=== PATIENT | male | born 1975 | race Caucasian/White ===

== ENCOUNTER 2016-08-09 14:32 | Inpatient (IN) | payer MEDICARE, MEDICAID ==
[~2016-08-09] VITALS: Ht 175.3 cm; Wt 101.5 kg
[2016-08-09] MEDS ORDERED: HALD5INJ2 PO (14:53)
[2016-08-09] MEDS ORDERED: SERO1TAB PO (14:53)
[2016-08-09] MEDS ORDERED: LITH300C PO (14:53)
[2016-08-09] MEDS ORDERED: TRAZ50TA4 PO (16:32)
[2016-08-09] MEDS ORDERED: CRAN400T3 PO (16:32)
[2016-08-09] MEDS ORDERED: ARTI99.0 OU (16:32)
[2016-08-09] MEDS ORDERED: HALO1TAB29 PO (16:32)
[2016-08-09] MEDS ORDERED: VITMTA PO (16:32)
[2016-08-09] MEDS ORDERED: HALO50AM IM (16:32)
[2016-08-09] MEDS ORDERED: HYDR-4274 PO (16:32)
[2016-08-09 20:11] VITALS: BP 120/86
[2016-08-09] MEDS ORDERED: QUEtiapine FUMARATE 100 MG TAB PO SCH (21:00)
[2016-08-09] MEDS ORDERED: traZODone 50 MG TAB PO PRN (21:15)
[2016-08-09] MEDS ORDERED: MOM 30ML SUSPENSION UDC PO PRN (21:15)
[2016-08-09] MEDS ORDERED: MAALOX 30 ML SUSP *UDC PO PRN (21:15)
[2016-08-09] MEDS: LITHIUM CARBONATE 300 MG CAP PO SCH (21:36)
[2016-08-09] MEDS: HALOPERIDOL 10 MG TAB PO SCH (21:36)
[2016-08-09] MEDS: NICOTINE 21MG/24HR 1 EA TRANSDERMAL TD SCH (21:38)
[2016-08-10] MEDS: hydrOXYzine 50 MG TAB PO PRN ×2 (00:13→10:24)
[2016-08-10 06:46] VITALS: BP 134/77
[2016-08-10] MEDS: MULTIVITAMINS/MINERALS THERAP 1 TAB PO SCH (10:24)
[2016-08-10] MEDS: NICOTINE 21MG/24HR 1 EA TRANSDERMAL TD SCH (10:24)
[2016-08-10] MEDS: LITHIUM CARBONATE 300 MG CAP PO SCH ×3 (10:24→22:25)
[2016-08-10] MEDS: HALOPERIDOL 10 MG TAB PO SCH (10:24)
[2016-08-10 10:56] LABS: BASO % 0.5 % (0.0-1.0); EOS # 0.2 K/mm3 (0.0-0.50); EOS % 1.7 % (0.0-3.0); LARGE UNSTAINED CELL # 0.1 K/mm3 (0.0-0.4); LYMPH # 1.6 K/mm3 (1.5-4.5); LYMPH % 15.5 % (24.0-44.0); MEAN CORPUSCULAR HEMOGLOBIN 29.3 pg (27.0-33.0); MEAN CORPUSCULAR HGB CONC 32.5 g/dl (32.0-36.5); MEAN CORPUSCULAR VOLUME 90.4 fl (80.0-96.0); MONO # 0.6 K/mm3 (0.0-0.8); MONO % 5.8 % (0.0-5.0); NEUTROPHILS # 7.7 K/mm3 (1.8-7.7); NEUTROPHILS % 75.6 % (36.0-66.0); PLATELET COUNT, AUTOMATED 336 k/mm3 (150-450); RED CELL DISTRIBUTION WIDTH 13.5 % (11.5-14.5); WHITE BLOOD COUNT 10.1 K/mm3 (4.0-10.0)
[2016-08-10 11:21] LABS: ALBUMIN 3.2 GM/DL (3.2-5.2); ALBUMIN/GLOBULIN RATIO 0.91 (1.00-1.93); ALKALINE PHOSPHATASE 87 U/L (45-117); ALT/SGPT 35 U/L (12-78); ANION GAP 7 MEQ/L (8-16); AST/SGOT 16 U/L (15-37); BILIRUBIN,TOTAL 0.2 MG/DL (0.2-1.0); BLOOD UREA NITROGEN 12 MG/DL (7-18); CALCIUM LEVEL 8.8 MG/DL (8.5-10.1); CARBON DIOXIDE LEVEL 29 MEQ/L (21-32); CHLORIDE LEVEL 104 MEQ/L (98-107); CREATININE FOR GFR 0.85 MG/DL (0.70-1.30); GLOMERULAR FILTRATION RATE > 60.0 (>60); GLUCOSE, FASTING 123 MG/DL (70-105); POTASSIUM SERUM 4.2 MEQ/L (3.5-5.1); SODIUM LEVEL 140 MEQ/L (136-145); TOTAL PROTEIN 6.7 GM/DL (6.4-8.2)
[2016-08-10 11:44] LABS: LITHIUM LEVEL < 0.20 MEQ/L (0.60-1.20)
[2016-08-10] MEDS: ACETAMINOPHEN TAB 650MG DOSE (2X325MG) PO PRN ×2 (11:47→18:22)
[2016-08-10] MEDS: POLYVINYL ALCOHOL OPHTH SOLN 15 ML(LIQUITEARS) OU PRN ×2 (11:48→16:42)
[2016-08-10 18:00] VITALS: BP 134/68
[2016-08-10] MEDS: NYSTATIN 500,000 U/5 ML SUSP UDC SS SCH ×2 (18:42→22:25)
[2016-08-10] MEDS: OLANZapine 5 MG TAB PO SCH (22:23)
[2016-08-10] MEDS: traZODone 100 MG TAB PO SCH (22:24)
[2016-08-10] MEDS: ALPRAZolam 0.5 MG TAB PO SCH (22:24)
[2016-08-10] MEDS: AUGMENTIN 875 MG TAB PO SCH (22:24)
[2016-08-11 06:52] VITALS: BP 127/76
[2016-08-11] MEDS: LITHIUM CARBONATE 300 MG CAP PO SCH ×3 (08:38→22:23)
[2016-08-11] MEDS: ALPRAZolam 0.5 MG TAB PO SCH ×2 (08:39→20:27)
[2016-08-11] MEDS: NYSTATIN 500,000 U/5 ML SUSP UDC SS SCH ×4 (08:39→22:22)
[2016-08-11] MEDS: NICOTINE 21MG/24HR 1 EA TRANSDERMAL TD SCH (08:39)
[2016-08-11] MEDS: MULTIVITAMINS/MINERALS THERAP 1 TAB PO SCH (08:39)
[2016-08-11] MEDS: AUGMENTIN 875 MG TAB PO SCH ×2 (08:39→22:22)
[2016-08-11] MEDS: ACETAMINOPHEN TAB 650MG DOSE (2X325MG) PO PRN (08:40)
[2016-08-11] MEDS: POLYVINYL ALCOHOL OPHTH SOLN 15 ML(LIQUITEARS) OU PRN (08:42)
[2016-08-11] MEDS: HYDROCORTISONE 1% OINTMENT 30GM TOP SCH (15:24)
[2016-08-11 18:00] VITALS: BP 127/82
[2016-08-11] MEDS: IBUPROFEN 400 MG TAB PO PRN (20:28)
[2016-08-11] MEDS: OLANZapine 5 MG TAB PO SCH (22:22)
[2016-08-11] MEDS: traZODone 100 MG TAB PO SCH (22:23)
[2016-08-12] MEDS: IBUPROFEN 400 MG TAB PO PRN ×3 (04:55→19:32)
[2016-08-12 06:29] VITALS: BP 131/77
[2016-08-12] MEDS: NICOTINE 21MG/24HR 1 EA TRANSDERMAL TD SCH (08:59)
[2016-08-12] MEDS: ALPRAZolam 0.5 MG TAB PO SCH ×2 (08:59→20:52)
[2016-08-12] MEDS: NYSTATIN 500,000 U/5 ML SUSP UDC SS SCH ×4 (09:00→20:52)
[2016-08-12] MEDS: HYDROCORTISONE 1% OINTMENT 30GM TOP SCH (09:00)
[2016-08-12] MEDS: MULTIVITAMINS/MINERALS THERAP 1 TAB PO SCH (09:00)
[2016-08-12] MEDS: AUGMENTIN 875 MG TAB PO SCH ×2 (09:00→20:52)
[2016-08-12] MEDS: LITHIUM CARBONATE 300 MG CAP PO SCH ×3 (09:00→20:52)
[2016-08-12] MEDS: POLYVINYL ALCOHOL OPHTH SOLN 15 ML(LIQUITEARS) OU PRN ×2 (10:23→19:32)
[2016-08-12] MEDS: ACETAMINOPHEN TAB 650MG DOSE (2X325MG) PO PRN (15:40)
[2016-08-12 18:00] VITALS: BP 134/71
[2016-08-12] MEDS: OLANZapine 5 MG TAB PO SCH (20:52)
[2016-08-13] MEDS: ACETAMINOPHEN TAB 650MG DOSE (2X325MG) PO PRN ×3 (01:13→21:21)
[2016-08-13] MEDS: traZODone 100 MG TAB PO SCH ×2 (01:49→21:19)
[2016-08-13] MEDS: IBUPROFEN 400 MG TAB PO PRN ×3 (03:27→18:05)
[2016-08-13] MEDS: POLYVINYL ALCOHOL OPHTH SOLN 15 ML(LIQUITEARS) OU PRN ×3 (05:49→18:05)
[2016-08-13 06:00] VITALS: BP 121/85
[2016-08-13] MEDS: NYSTATIN 500,000 U/5 ML SUSP UDC SS SCH ×4 (08:12→21:18)
[2016-08-13] MEDS: AUGMENTIN 875 MG TAB PO SCH ×2 (08:12→21:19)
[2016-08-13] MEDS: HYDROCORTISONE 1% OINTMENT 30GM TOP SCH (08:12)
[2016-08-13] MEDS: MULTIVITAMINS/MINERALS THERAP 1 TAB PO SCH (08:13)
[2016-08-13] MEDS: ALPRAZolam 0.5 MG TAB PO SCH ×2 (08:13→18:05)
[2016-08-13] MEDS: LITHIUM CARBONATE 300 MG CAP PO SCH ×3 (08:13→21:20)
[2016-08-13] MEDS: NICOTINE 21MG/24HR 1 EA TRANSDERMAL TD SCH (08:14)
[2016-08-13 18:00] VITALS: BP 149/71
[2016-08-13] MEDS: OLANZapine 5 MG TAB PO SCH (21:20)
[2016-08-14] MEDS: POLYVINYL ALCOHOL OPHTH SOLN 15 ML(LIQUITEARS) OU PRN ×3 (02:43→21:29)
[2016-08-14] MEDS: IBUPROFEN 400 MG TAB PO PRN ×3 (02:43→21:30)
[2016-08-14 06:00] VITALS: BP 146/92
[2016-08-14] MEDS: MULTIVITAMINS/MINERALS THERAP 1 TAB PO SCH (08:12)
[2016-08-14] MEDS: LITHIUM CARBONATE 300 MG CAP PO SCH ×3 (08:12→21:28)
[2016-08-14] MEDS: AUGMENTIN 875 MG TAB PO SCH ×2 (08:12→21:28)
[2016-08-14] MEDS: ALPRAZolam 0.5 MG TAB PO SCH ×2 (08:12→21:29)
[2016-08-14] MEDS: HYDROCORTISONE 1% OINTMENT 30GM TOP SCH (08:13)
[2016-08-14] MEDS: NYSTATIN 500,000 U/5 ML SUSP UDC SS SCH ×4 (08:13→21:28)
[2016-08-14] MEDS: NICOTINE 21MG/24HR 1 EA TRANSDERMAL TD SCH (08:13)
[2016-08-14] MEDS: ACETAMINOPHEN TAB 650MG DOSE (2X325MG) PO PRN ×2 (11:20→19:07)
[2016-08-14 18:00] VITALS: BP 118/61
[2016-08-14] MEDS: traZODone 100 MG TAB PO SCH (21:29)
[2016-08-14] MEDS: OLANZapine 5 MG TAB PO SCH (21:29)
[2016-08-15] MEDS: POLYVINYL ALCOHOL OPHTH SOLN 15 ML(LIQUITEARS) OU PRN ×2 (00:33→15:22)
[2016-08-15] MEDS: hydrOXYzine 50 MG TAB PO PRN ×2 (00:34→22:40)
[2016-08-15] MEDS: ACETAMINOPHEN TAB 650MG DOSE (2X325MG) PO PRN ×2 (02:29→15:23)
[2016-08-15 06:15] VITALS: BP 130/92
[2016-08-15] MEDS: IBUPROFEN 400 MG TAB PO PRN ×2 (06:54→12:55)
[2016-08-15] MEDS: MULTIVITAMINS/MINERALS THERAP 1 TAB PO SCH (08:18)
[2016-08-15] MEDS: ALPRAZolam 0.5 MG TAB PO SCH ×2 (08:18→21:05)
[2016-08-15] MEDS: AUGMENTIN 875 MG TAB PO SCH ×2 (08:18→21:05)
[2016-08-15] MEDS: LITHIUM CARBONATE 300 MG CAP PO SCH ×3 (08:18→21:05)
[2016-08-15] MEDS: NYSTATIN 500,000 U/5 ML SUSP UDC SS SCH ×4 (08:19→22:38)
[2016-08-15] MEDS: HYDROCORTISONE 1% OINTMENT 30GM TOP SCH (08:19)
[2016-08-15] MEDS: NICOTINE 21MG/24HR 1 EA TRANSDERMAL TD SCH (08:19)
[2016-08-15 18:17] VITALS: BP 132/68
[2016-08-15] MEDS: OLANZapine 5 MG TAB PO SCH (21:04)
[2016-08-15] MEDS: traZODone 100 MG TAB PO SCH (22:40)
[2016-08-16] MEDS: POLYVINYL ALCOHOL OPHTH SOLN 15 ML(LIQUITEARS) OU PRN ×2 (03:46→08:23)
[2016-08-16] MEDS: ACETAMINOPHEN TAB 650MG DOSE (2X325MG) PO PRN ×2 (03:46→16:49)
[2016-08-16] MEDS: IBUPROFEN 400 MG TAB PO PRN ×3 (05:11→21:22)
[2016-08-16 06:24] VITALS: BP 132/80
[2016-08-16] MEDS: NYSTATIN 500,000 U/5 ML SUSP UDC SS SCH ×4 (08:23→21:21)
[2016-08-16] MEDS: MULTIVITAMINS/MINERALS THERAP 1 TAB PO SCH (08:24)
[2016-08-16] MEDS: AUGMENTIN 875 MG TAB PO SCH ×2 (08:24→21:21)
[2016-08-16] MEDS: NICOTINE 21MG/24HR 1 EA TRANSDERMAL TD SCH (08:24)
[2016-08-16] MEDS: ALPRAZolam 0.5 MG TAB PO SCH ×2 (08:25→21:21)
[2016-08-16] MEDS: LITHIUM CARBONATE 300 MG CAP PO SCH ×3 (08:25→21:21)
[2016-08-16] MEDS: HYDROCORTISONE 1% OINTMENT 30GM TOP SCH (08:26)
[2016-08-16 18:38] VITALS: BP 124/74
[2016-08-16] MEDS: traZODone 100 MG TAB PO SCH (21:00)
[2016-08-16] MEDS: OLANZapine 10 MG TAB PO SCH (21:00)
[2016-08-17] MEDS: POLYVINYL ALCOHOL OPHTH SOLN 15 ML(LIQUITEARS) OU PRN ×2 (03:08→08:46)
[2016-08-17] MEDS: IBUPROFEN 400 MG TAB PO PRN ×3 (04:51→20:14)
[2016-08-17 06:15] VITALS: BP 133/84
[2016-08-17] MEDS: NYSTATIN 500,000 U/5 ML SUSP UDC SS SCH ×4 (08:46→20:11)
[2016-08-17] MEDS: MULTIVITAMINS/MINERALS THERAP 1 TAB PO SCH (08:47)
[2016-08-17] MEDS: ALPRAZolam 0.5 MG TAB PO SCH (08:47)
[2016-08-17] MEDS: NICOTINE 21MG/24HR 1 EA TRANSDERMAL TD SCH (08:47)
[2016-08-17] MEDS: AUGMENTIN 875 MG TAB PO SCH ×2 (08:47→20:11)
[2016-08-17] MEDS: HYDROCORTISONE 1% OINTMENT 30GM TOP SCH (08:48)
[2016-08-17] MEDS: LITHIUM CARBONATE 300 MG CAP PO SCH ×2 (16:20→20:11)
[2016-08-17 18:00] VITALS: BP 129/80
[2016-08-17] MEDS: OLANZapine 10 MG TAB PO SCH ×2 (20:10→21:00)
[2016-08-17] MEDS: traZODone 100 MG TAB PO SCH (22:32)
[2016-08-17] MEDS: ACETAMINOPHEN TAB 650MG DOSE (2X325MG) PO PRN (22:35)
[2016-08-18] MEDS: IBUPROFEN 400 MG TAB PO PRN ×3 (02:27→21:07)
[2016-08-18] MEDS: hydrOXYzine 50 MG TAB PO PRN ×2 (05:00→14:01)
[2016-08-18 06:00] VITALS: BP 137/69
[2016-08-18] MEDS: NYSTATIN 500,000 U/5 ML SUSP UDC SS SCH ×4 (09:13→21:03)
[2016-08-18] MEDS: AUGMENTIN 875 MG TAB PO SCH ×2 (09:13→21:02)
[2016-08-18] MEDS: MULTIVITAMINS/MINERALS THERAP 1 TAB PO SCH (09:13)
[2016-08-18] MEDS: HYDROCORTISONE 1% OINTMENT 30GM TOP SCH (09:14)
[2016-08-18] MEDS: NICOTINE 21MG/24HR 1 EA TRANSDERMAL TD SCH (09:15)
[2016-08-18] MEDS: OLANZapine 5 MG TAB PO SCH ×3 (09:17→21:03)
[2016-08-18] MEDS: ALPRAZolam 0.5 MG TAB PO SCH ×2 (09:17→16:07)
[2016-08-18] MEDS: POLYVINYL ALCOHOL OPHTH SOLN 15 ML(LIQUITEARS) OU PRN (09:18)
[2016-08-18] MEDS: LITHIUM CARBONATE 300MG/5ML(8MEQ/5ML)ORAL SOLUTION UDC PO SCH ×4 (09:39→21:03)
[2016-08-18 18:00] VITALS: BP 130/70
[2016-08-18] MEDS: traZODone 100 MG TAB PO SCH (21:03)
[2016-08-19] MEDS: ACETAMINOPHEN TAB 650MG DOSE (2X325MG) PO PRN ×2 (02:06→22:08)
[2016-08-19] MEDS ORDERED: OLANZapine 10 MG TAB PO ONE (03:00)
[2016-08-19] MEDS ORDERED: LORazepam 1 MG TAB PO ONE ×2 (03:00→22:45)
[2016-08-19] MEDS: POLYVINYL ALCOHOL OPHTH SOLN 15 ML(LIQUITEARS) OU PRN ×3 (04:15→22:08)
[2016-08-19 06:13] VITALS: BP 142/73
[2016-08-19] MEDS: NICOTINE 21MG/24HR 1 EA TRANSDERMAL TD SCH (08:43)
[2016-08-19] MEDS: HYDROCORTISONE 1% OINTMENT 30GM TOP SCH (08:45)
[2016-08-19] MEDS: AUGMENTIN 875 MG TAB PO SCH ×2 (08:46→21:08)
[2016-08-19] MEDS: ALPRAZolam 0.5 MG TAB PO SCH ×2 (08:46→15:42)
[2016-08-19] MEDS: NYSTATIN 500,000 U/5 ML SUSP UDC SS SCH ×4 (08:46→21:09)
[2016-08-19] MEDS: MULTIVITAMINS/MINERALS THERAP 1 TAB PO SCH (08:46)
[2016-08-19] MEDS: OLANZapine 5 MG TAB PO SCH ×3 (08:46→21:10)
[2016-08-19] MEDS: LITHIUM CARBONATE 300MG/5ML(8MEQ/5ML)ORAL SOLUTION UDC PO SCH ×4 (08:46→21:09)
[2016-08-19] MEDS: hydrOXYzine 50 MG TAB PO PRN ×2 (12:08→22:08)
[2016-08-19 18:13] VITALS: BP 119/72
[2016-08-19] MEDS: traZODone 100 MG TAB PO SCH (21:09)
[2016-08-19] MEDS: IBUPROFEN 400 MG TAB PO PRN (21:09)
[2016-08-20] MEDS: IBUPROFEN 400 MG TAB PO PRN ×2 (03:17→22:27)
[2016-08-20] MEDS: ACETAMINOPHEN TAB 650MG DOSE (2X325MG) PO PRN ×2 (05:55→15:23)
[2016-08-20 06:00] VITALS: BP 147/90
[2016-08-20] MEDS: MULTIVITAMINS/MINERALS THERAP 1 TAB PO SCH (09:01)
[2016-08-20] MEDS: OLANZapine 5 MG TAB PO SCH ×2 (09:01→15:21)
[2016-08-20] MEDS: AUGMENTIN 875 MG TAB PO SCH (09:01)
[2016-08-20] MEDS: ALPRAZolam 0.5 MG TAB PO SCH ×2 (09:01→15:21)
[2016-08-20] MEDS: HYDROCORTISONE 1% OINTMENT 30GM TOP SCH (09:02)
[2016-08-20] MEDS: NYSTATIN 500,000 U/5 ML SUSP UDC SS SCH ×2 (09:02→12:52)
[2016-08-20] MEDS: LITHIUM CARBONATE 300MG/5ML(8MEQ/5ML)ORAL SOLUTION UDC PO SCH ×4 (09:02→20:17)
[2016-08-20] MEDS: NICOTINE 21MG/24HR 1 EA TRANSDERMAL TD SCH (09:03)
[2016-08-20] MEDS: hydrOXYzine 50 MG TAB PO PRN ×2 (12:55→20:17)
[2016-08-20 18:00] VITALS: BP 119/62
[2016-08-20] MEDS: POLYVINYL ALCOHOL OPHTH SOLN 15 ML(LIQUITEARS) OU PRN (20:17)
[2016-08-20] MEDS: traZODone 100 MG TAB PO SCH (21:00)
[2016-08-21] MEDS: POLYVINYL ALCOHOL OPHTH SOLN 15 ML(LIQUITEARS) OU PRN (01:17)
[2016-08-21] MEDS: ACETAMINOPHEN TAB 650MG DOSE (2X325MG) PO PRN ×3 (01:17→21:30)
[2016-08-21] MEDS: OLANZapine 5 MG TAB PO SCH ×2 (03:30→08:38)
[2016-08-21] MEDS: IBUPROFEN 400 MG TAB PO PRN ×2 (04:57→14:52)
[2016-08-21 06:37] VITALS: BP 143/80
[2016-08-21] MEDS: MULTIVITAMINS/MINERALS THERAP 1 TAB PO SCH (08:38)
[2016-08-21] MEDS: LITHIUM CARBONATE 300MG/5ML(8MEQ/5ML)ORAL SOLUTION UDC PO SCH ×4 (08:39→21:29)
[2016-08-21] MEDS: NICOTINE 21MG/24HR 1 EA TRANSDERMAL TD SCH (08:39)
[2016-08-21] MEDS: ALPRAZolam 0.5 MG TAB PO SCH ×2 (08:39→21:30)
[2016-08-21] MEDS: HYDROCORTISONE 1% OINTMENT 30GM TOP SCH (08:39)
[2016-08-21] MEDS: hydrOXYzine 50 MG TAB PO PRN (13:36)
[2016-08-21] MEDS: OLANZapine ORAL DISINTEGRATING TAB 5MG PO SCH (16:15)
[2016-08-21 18:00] VITALS: BP 138/80
[2016-08-21] MEDS ORDERED: OLANZapine ORAL DISINTEGRATING TAB 5MG PO SCH (21:00)
[2016-08-21] MEDS: traZODone 100 MG TAB PO SCH (23:02)
[2016-08-22] MEDS: hydrOXYzine 50 MG TAB PO PRN ×2 (01:29→10:19)
[2016-08-22] MEDS: IBUPROFEN 400 MG TAB PO PRN ×3 (01:29→18:09)
[2016-08-22] MEDS: POLYVINYL ALCOHOL OPHTH SOLN 15 ML(LIQUITEARS) OU PRN ×2 (01:32→08:21)
[2016-08-22] MEDS: ACETAMINOPHEN TAB 650MG DOSE (2X325MG) PO PRN ×3 (05:18→21:00)
[2016-08-22 06:47] VITALS: BP 144/78
[2016-08-22] MEDS: ALPRAZolam 0.5 MG TAB PO SCH ×2 (08:19→21:58)
[2016-08-22] MEDS: MULTIVITAMINS/MINERALS THERAP 1 TAB PO SCH (08:19)
[2016-08-22] MEDS: NICOTINE 21MG/24HR 1 EA TRANSDERMAL TD SCH (08:19)
[2016-08-22] MEDS: OLANZapine ORAL DISINTEGRATING TAB 5MG PO SCH (08:20)
[2016-08-22] MEDS: HYDROCORTISONE 1% OINTMENT 30GM TOP SCH (08:21)
[2016-08-22 18:00] VITALS: BP 140/84
[2016-08-22] MEDS: ASENAPINE 5 MG SUBLINGUAL TAB (SAPHRIS) SL SCH (20:07)
[2016-08-22] MEDS: traZODone 100 MG TAB PO SCH (21:58)
[2016-08-22] MEDS: LITHIUM CARBONATE 300MG/5ML(8MEQ/5ML)ORAL SOLUTION UDC PO SCH (22:35)
[2016-08-23 06:03] VITALS: BP 126/78
[2016-08-23] MEDS: ACETAMINOPHEN TAB 650MG DOSE (2X325MG) PO PRN (06:12)
[2016-08-23] MEDS: NICOTINE 21MG/24HR 1 EA TRANSDERMAL TD SCH (08:08)
[2016-08-23] MEDS: ASENAPINE 5 MG SUBLINGUAL TAB (SAPHRIS) SL SCH ×2 (08:09→21:29)
[2016-08-23] MEDS: MULTIVITAMINS/MINERALS THERAP 1 TAB PO SCH (08:09)
[2016-08-23] MEDS: ALPRAZolam 0.5 MG TAB PO SCH ×2 (08:09→21:29)
[2016-08-23] MEDS: LITHIUM CARBONATE 300MG/5ML(8MEQ/5ML)ORAL SOLUTION UDC PO SCH ×4 (08:09→21:29)
[2016-08-23] MEDS: HYDROCORTISONE 1% OINTMENT 30GM TOP SCH (08:32)
[2016-08-23] MEDS: IBUPROFEN 400 MG TAB PO PRN (12:04)
[2016-08-23 18:00] VITALS: BP 142/87
[2016-08-23] MEDS: traZODone 100 MG TAB PO SCH (21:29)
[2016-08-24] MEDS: hydrOXYzine 50 MG TAB PO PRN ×2 (03:44→15:00)
[2016-08-24 06:32] VITALS: BP 141/92
[2016-08-24] MEDS: LITHIUM CARBONATE 300MG/5ML(8MEQ/5ML)ORAL SOLUTION UDC PO SCH ×4 (08:08→22:31)
[2016-08-24] MEDS: HYDROCORTISONE 1% OINTMENT 30GM TOP SCH (08:08)
[2016-08-24] MEDS: NICOTINE 21MG/24HR 1 EA TRANSDERMAL TD SCH (08:08)
[2016-08-24] MEDS: ASENAPINE 5 MG SUBLINGUAL TAB (SAPHRIS) SL SCH ×2 (08:08→21:00)
[2016-08-24] MEDS: ALPRAZolam 0.5 MG TAB PO SCH ×2 (08:08→22:31)
[2016-08-24] MEDS: MULTIVITAMINS/MINERALS THERAP 1 TAB PO SCH (08:09)
[2016-08-24] MEDS: IBUPROFEN 400 MG TAB PO PRN (16:32)
[2016-08-24 18:28] VITALS: BP 138/69
[2016-08-24] MEDS: traZODone 100 MG TAB PO SCH (22:31)
[2016-08-25] MEDS: IBUPROFEN 400 MG TAB PO PRN ×2 (00:49→16:11)
[2016-08-25] MEDS: ACETAMINOPHEN TAB 650MG DOSE (2X325MG) PO PRN ×2 (02:11→14:42)
[2016-08-25 07:15] VITALS: BP 131/76
[2016-08-25] MEDS: ASENAPINE 5 MG SUBLINGUAL TAB (SAPHRIS) SL SCH ×2 (08:00→23:54)
[2016-08-25] MEDS: MULTIVITAMINS/MINERALS THERAP 1 TAB PO SCH (08:00)
[2016-08-25] MEDS: LITHIUM CARBONATE 300MG/5ML(8MEQ/5ML)ORAL SOLUTION UDC PO SCH (08:00)
[2016-08-25] MEDS: ALPRAZolam 0.5 MG TAB PO SCH ×2 (08:01→23:54)
[2016-08-25] MEDS: HYDROCORTISONE 1% OINTMENT 30GM TOP SCH (08:01)
[2016-08-25] MEDS: NICOTINE 21MG/24HR 1 EA TRANSDERMAL TD SCH (08:02)
[2016-08-25] MEDS ORDERED: **PENDING PPD ENTRY XX SCH (09:00)
[2016-08-25] MEDS: hydrOXYzine 50 MG TAB PO PRN (13:14)
[2016-08-25] MEDS ORDERED: TUBERCULIN PPD 5 UNITS/0.1 ML ID ONE (17:00)
[2016-08-25 18:00] VITALS: BP 142/85
[2016-08-25] MEDS: traZODone 100 MG TAB PO SCH (23:54)
[2016-08-26] MEDS: ACETAMINOPHEN TAB 650MG DOSE (2X325MG) PO PRN ×2 (03:43→14:45)
[2016-08-26 06:00] VITALS: BP 139/70
[2016-08-26] MEDS: hydrOXYzine 50 MG TAB PO PRN ×2 (06:20→16:29)
[2016-08-26] MEDS: ALPRAZolam 0.5 MG TAB PO SCH ×2 (08:27→20:56)
[2016-08-26] MEDS: NICOTINE 21MG/24HR 1 EA TRANSDERMAL TD SCH (08:27)
[2016-08-26] MEDS: MULTIVITAMINS/MINERALS THERAP 1 TAB PO SCH (08:27)
[2016-08-26] MEDS: ASENAPINE 5 MG SUBLINGUAL TAB (SAPHRIS) SL SCH ×2 (08:27→20:57)
[2016-08-26] MEDS: HYDROCORTISONE 1% OINTMENT 30GM TOP SCH (08:29)
[2016-08-26] MEDS ORDERED: TUBERCULIN PPD 5 UNITS/0.1 ML ID ONE (10:00)
[2016-08-26] MEDS: IBUPROFEN 400 MG TAB PO PRN ×2 (10:13→19:09)
[2016-08-26] MEDS ORDERED: PPD DOCUMENTATION ENTRY MISC XX SCH (11:00)
[2016-08-26] MEDS: POLYVINYL ALCOHOL OPHTH SOLN 15 ML(LIQUITEARS) OU PRN ×2 (15:33→21:00)
[2016-08-26] MEDS: LITHIUM CARBONATE 300MG/5ML(8MEQ/5ML)ORAL SOLUTION UDC PO SCH ×2 (16:29→20:57)
[2016-08-26 18:00] VITALS: BP 137/82
[2016-08-26] MEDS: traZODone 100 MG TAB PO SCH (21:00)
[2016-08-27] MEDS: hydrOXYzine 50 MG TAB PO PRN ×2 (03:29→18:14)
[2016-08-27] MEDS: IBUPROFEN 400 MG TAB PO PRN (03:30)
[2016-08-27 06:00] VITALS: BP 136/79
[2016-08-27] MEDS: MULTIVITAMINS/MINERALS THERAP 1 TAB PO SCH (08:33)
[2016-08-27] MEDS: LITHIUM CARBONATE 300MG/5ML(8MEQ/5ML)ORAL SOLUTION UDC PO SCH ×4 (08:33→20:17)
[2016-08-27] MEDS: ALPRAZolam 0.5 MG TAB PO SCH ×2 (08:33→20:16)
[2016-08-27] MEDS: ASENAPINE 5 MG SUBLINGUAL TAB (SAPHRIS) SL SCH ×2 (08:33→20:17)
[2016-08-27] MEDS: NICOTINE 21MG/24HR 1 EA TRANSDERMAL TD SCH (08:33)
[2016-08-27] MEDS: HYDROCORTISONE 1% OINTMENT 30GM TOP SCH (09:00)
[2016-08-27] MEDS: ACETAMINOPHEN TAB 650MG DOSE (2X325MG) PO PRN (13:52)
[2016-08-27] MEDS ORDERED: PPD DOCUMENTATION ENTRY MISC XX ONE (17:00)
[2016-08-27 18:00] VITALS: BP 142/81
[2016-08-27] MEDS: traZODone 100 MG TAB PO SCH (23:24)
[2016-08-28] MEDS: IBUPROFEN 400 MG TAB PO PRN ×3 (00:19→22:49)
[2016-08-28 06:15] VITALS: BP 148/83
[2016-08-28] MEDS: HYDROCORTISONE 1% OINTMENT 30GM TOP SCH (08:10)
[2016-08-28] MEDS: ASENAPINE 5 MG SUBLINGUAL TAB (SAPHRIS) SL SCH ×2 (08:11→22:49)
[2016-08-28] MEDS: ALPRAZolam 0.5 MG TAB PO SCH ×2 (08:11→22:47)
[2016-08-28] MEDS: MULTIVITAMINS/MINERALS THERAP 1 TAB PO SCH (08:11)
[2016-08-28] MEDS: NICOTINE 21MG/24HR 1 EA TRANSDERMAL TD SCH (08:12)
[2016-08-28] MEDS: LITHIUM CARBONATE 300MG/5ML(8MEQ/5ML)ORAL SOLUTION UDC PO SCH ×2 (08:15→22:46)
[2016-08-28] MEDS: POLYVINYL ALCOHOL OPHTH SOLN 15 ML(LIQUITEARS) OU PRN (08:56)
[2016-08-28] MEDS ORDERED: LITHIUM CARBONATE 300MG/5ML(8MEQ/5ML)ORAL SOLUTION UDC PO SCH (09:00)
[2016-08-28] MEDS ORDERED: LITHIUM CARBONATE 300MG/5ML(8MEQ/5ML)ORAL SOLUTION UDC PO ONE (10:00)
[2016-08-28] MEDS: hydrOXYzine 50 MG TAB PO PRN ×2 (13:43→20:15)
[2016-08-28 18:00] VITALS: BP 126/69
[2016-08-28] MEDS: ACETAMINOPHEN TAB 650MG DOSE (2X325MG) PO PRN (20:16)
[2016-08-28] MEDS: traZODone 100 MG TAB PO SCH (22:47)
[2016-08-29] MEDS: IBUPROFEN 400 MG TAB PO PRN ×2 (05:00→22:11)
[2016-08-29 06:14] VITALS: BP 143/96
[2016-08-29 07:38] LABS: BASO # 0.1 K/mm3 (0.0-0.2); BASO % 0.8 % (0.0-1.0); EOS # 0.4 K/mm3 (0.0-0.50); EOS % 3.4 % (0.0-3.0); LARGE UNSTAINED CELL # 0.2 K/mm3 (0.0-0.4); LARGE UNSTAINED CELL % 1.8 % (0.0-4.0); LYMPH # 1.8 K/mm3 (1.5-4.5); LYMPH % 15.8 % (24.0-44.0); MEAN CORPUSCULAR HEMOGLOBIN 29.2 pg (27.0-33.0); MEAN CORPUSCULAR VOLUME 91.3 fl (80.0-96.0); MONO # 0.7 K/mm3 (0.0-0.8); MONO % 6.2 % (0.0-5.0); NEUTROPHILS # 8.3 K/mm3 (1.8-7.7); PLATELET COUNT, AUTOMATED 344 k/mm3 (150-450); RED CELL DISTRIBUTION WIDTH 13.4 % (11.5-14.5); WHITE BLOOD COUNT 11.5 K/mm3 (4.0-10.0)
[2016-08-29 07:58] LABS: ALBUMIN 3.6 GM/DL (3.2-5.2); ALKALINE PHOSPHATASE 71 U/L (45-117); ALT/SGPT 45 U/L (12-78); ANION GAP 7 MEQ/L (8-16); AST/SGOT 21 U/L (15-37); BILIRUBIN,TOTAL 0.3 MG/DL (0.2-1.0); BLOOD UREA NITROGEN 16 MG/DL (7-18); CARBON DIOXIDE LEVEL 27 MEQ/L (21-32); CHLORIDE LEVEL 103 MEQ/L (98-107); GLOMERULAR FILTRATION RATE > 60.0 (>60); GLUCOSE, FASTING 126 MG/DL (70-105); POTASSIUM SERUM 4.2 MEQ/L (3.5-5.1); SODIUM LEVEL 137 MEQ/L (136-145); TOTAL PROTEIN 7.2 GM/DL (6.4-8.2)
[2016-08-29] MEDS ORDERED: LITHIUM CARBONATE 300MG/5ML(8MEQ/5ML)ORAL SOLUTION UDC PO ONE (09:00)
[2016-08-29] MEDS: HYDROCORTISONE 1% OINTMENT 30GM TOP SCH (09:00)
[2016-08-29] MEDS: POLYVINYL ALCOHOL OPHTH SOLN 15 ML(LIQUITEARS) OU PRN (09:11)
[2016-08-29] MEDS: LITHIUM CARBONATE 300MG/5ML(8MEQ/5ML)ORAL SOLUTION UDC PO SCH ×2 (09:21→22:36)
[2016-08-29] MEDS: MULTIVITAMINS/MINERALS THERAP 1 TAB PO SCH (09:21)
[2016-08-29] MEDS: ALPRAZolam 0.5 MG TAB PO SCH ×2 (09:21→22:37)
[2016-08-29] MEDS: NICOTINE 21MG/24HR 1 EA TRANSDERMAL TD SCH (09:23)
[2016-08-29] MEDS: hydrOXYzine 50 MG TAB PO PRN ×2 (13:13→22:11)
[2016-08-29 18:32] VITALS: BP 136/70
[2016-08-29] MEDS: ACETAMINOPHEN TAB 650MG DOSE (2X325MG) PO PRN (19:45)
[2016-08-29] MEDS: traZODone 100 MG TAB PO SCH (22:36)
[2016-08-29] MEDS: ASENAPINE 5 MG SUBLINGUAL TAB (SAPHRIS) SL SCH (22:37)
[2016-08-30] MEDS: ACETAMINOPHEN TAB 650MG DOSE (2X325MG) PO PRN ×2 (03:23→11:27)
[2016-08-30] MEDS: POLYVINYL ALCOHOL OPHTH SOLN 15 ML(LIQUITEARS) OU PRN ×2 (05:34→11:27)
[2016-08-30] MEDS: IBUPROFEN 400 MG TAB PO PRN ×3 (05:34→22:51)
[2016-08-30 06:40] VITALS: BP 134/72
[2016-08-30] MEDS: MULTIVITAMINS/MINERALS THERAP 1 TAB PO SCH (08:16)
[2016-08-30] MEDS: NICOTINE 21MG/24HR 1 EA TRANSDERMAL TD SCH (08:16)
[2016-08-30] MEDS: ALPRAZolam 0.5 MG TAB PO SCH ×2 (08:16→20:55)
[2016-08-30] MEDS: LITHIUM CARBONATE 300MG/5ML(8MEQ/5ML)ORAL SOLUTION UDC PO SCH ×2 (08:18→20:55)
[2016-08-30] MEDS: HYDROCORTISONE 1% OINTMENT 30GM TOP SCH (08:59)
[2016-08-30] MEDS: hydrOXYzine 50 MG TAB PO PRN (11:27)
[2016-08-30 18:20] VITALS: BP 152/88
[2016-08-30] MEDS: ASENAPINE 5 MG SUBLINGUAL TAB (SAPHRIS) SL SCH (20:55)
[2016-08-30] MEDS ORDERED: OLANZapine 5 MG TAB PO PRN (21:00)
[2016-08-31] MEDS: ACETAMINOPHEN TAB 650MG DOSE (2X325MG) PO PRN ×2 (01:15→18:28)
[2016-08-31] MEDS: POLYVINYL ALCOHOL OPHTH SOLN 15 ML(LIQUITEARS) OU PRN (02:27)
[2016-08-31 06:59] VITALS: BP 147/85
[2016-08-31] MEDS: HYDROCORTISONE 1% OINTMENT 30GM TOP SCH (08:11)
[2016-08-31] MEDS: MULTIVITAMINS/MINERALS THERAP 1 TAB PO SCH (08:13)
[2016-08-31] MEDS: NICOTINE 21MG/24HR 1 EA TRANSDERMAL TD SCH (08:13)
[2016-08-31] MEDS: hydrOXYzine 50 MG TAB PO PRN (16:06)
[2016-08-31] MEDS: IBUPROFEN 400 MG TAB PO PRN ×2 (16:06→23:49)
[2016-08-31 18:00] VITALS: BP 142/88
[2016-08-31] MEDS: ALPRAZolam 0.5 MG TAB PO SCH (20:29)
[2016-08-31] MEDS ORDERED: DIVALPROEX 250MG *ER* TAB PO SCH (21:00)
[2016-08-31] MEDS: ASENAPINE 5 MG SUBLINGUAL TAB (SAPHRIS) SL SCH (21:00)
[2016-08-31] MEDS: LITHIUM CARBONATE 300MG/5ML(8MEQ/5ML)ORAL SOLUTION UDC PO SCH (23:22)
[2016-09-01] MEDS: ACETAMINOPHEN TAB 650MG DOSE (2X325MG) PO PRN ×3 (01:33→20:07)
[2016-09-01] MEDS: IBUPROFEN 400 MG TAB PO PRN ×2 (06:20→16:56)
[2016-09-01 06:50] VITALS: BP 135/83
[2016-09-01] MEDS ORDERED: BENZTROPINE 2 MG TAB PO PRN (08:30)
[2016-09-01] MEDS: LITHIUM CARBONATE 300MG/5ML(8MEQ/5ML)ORAL SOLUTION UDC PO SCH ×2 (08:51→20:08)
[2016-09-01] MEDS: MULTIVITAMINS/MINERALS THERAP 1 TAB PO SCH (08:52)
[2016-09-01] MEDS: NICOTINE 21MG/24HR 1 EA TRANSDERMAL TD SCH (08:52)
[2016-09-01] MEDS: HALOPERIDOL 5 MG TAB PO SCH ×2 (08:52→20:07)
[2016-09-01] MEDS: HYDROCORTISONE 1% OINTMENT 30GM TOP SCH (08:52)
[2016-09-01] MEDS ORDERED: DIVALPROEX 250MG *ER* TAB PO SCH (09:00)
[2016-09-01] MEDS ORDERED: LORazepam 2 MG/ML VIAL (J2060) IM STA (13:18)
[2016-09-01 18:00] VITALS: BP 120/72
[2016-09-01] MEDS: ASENAPINE 5 MG SUBLINGUAL TAB (SAPHRIS) SL SCH (20:08)
[2016-09-01] MEDS: ALPRAZolam 0.5 MG TAB PO SCH (20:08)
[2016-09-01] MEDS ORDERED: ASENAPINE 5 MG SUBLINGUAL TAB (SAPHRIS) SL SCH (21:00)
[2016-09-02] MEDS: IBUPROFEN 400 MG TAB PO PRN ×3 (01:06→22:04)
[2016-09-02] MEDS: hydrOXYzine 50 MG TAB PO PRN ×2 (01:18→14:39)
[2016-09-02] MEDS: ACETAMINOPHEN TAB 650MG DOSE (2X325MG) PO PRN ×2 (04:20→18:35)
[2016-09-02] MEDS: PROPRANOLOL 10 MG TAB PO PRN (04:21)
[2016-09-02 06:33] VITALS: BP 129/78
[2016-09-02] MEDS: HYDROCORTISONE 1% OINTMENT 30GM TOP SCH (08:33)
[2016-09-02] MEDS: NICOTINE 21MG/24HR 1 EA TRANSDERMAL TD SCH (08:35)
[2016-09-02] MEDS: LITHIUM CARBONATE 300MG/5ML(8MEQ/5ML)ORAL SOLUTION UDC PO SCH ×2 (08:35→22:03)
[2016-09-02] MEDS: MULTIVITAMINS/MINERALS THERAP 1 TAB PO SCH (08:36)
[2016-09-02] MEDS: HALOPERIDOL 5 MG TAB PO SCH ×2 (08:36→22:03)
[2016-09-02] MEDS: VALPROIC ACID 250 MG CAP PO SCH ×2 (08:36→22:03)
[2016-09-02 18:20] VITALS: BP 140/77
[2016-09-02] MEDS: ALPRAZolam 0.5 MG TAB PO SCH (22:04)
[2016-09-02] MEDS: ASENAPINE 5 MG SUBLINGUAL TAB (SAPHRIS) SL SCH (22:05)
[2016-09-03] MEDS: IBUPROFEN 400 MG TAB PO PRN ×2 (04:10→19:30)
[2016-09-03] MEDS: hydrOXYzine 50 MG TAB PO PRN ×2 (04:10→16:01)
[2016-09-03 06:21] VITALS: BP 120/80
[2016-09-03] MEDS: MULTIVITAMINS/MINERALS THERAP 1 TAB PO SCH (09:01)
[2016-09-03] MEDS: HALOPERIDOL 5 MG TAB PO SCH ×2 (09:02→22:00)
[2016-09-03] MEDS: VALPROIC ACID 250 MG CAP PO SCH ×2 (09:02→22:00)
[2016-09-03] MEDS: LITHIUM CARBONATE 300MG/5ML(8MEQ/5ML)ORAL SOLUTION UDC PO SCH ×2 (09:02→21:59)
[2016-09-03] MEDS: HYDROCORTISONE 1% OINTMENT 30GM TOP SCH (09:03)
[2016-09-03] MEDS: NICOTINE 21MG/24HR 1 EA TRANSDERMAL TD SCH (09:03)
[2016-09-03] MEDS: ACETAMINOPHEN TAB 650MG DOSE (2X325MG) PO PRN (16:03)
[2016-09-03 18:00] VITALS: BP 139/77
[2016-09-03] MEDS: ASENAPINE 5 MG SUBLINGUAL TAB (SAPHRIS) SL SCH (21:59)
[2016-09-03] MEDS: ALPRAZolam 0.5 MG TAB PO SCH (21:59)
[2016-09-04] MEDS: hydrOXYzine 50 MG TAB PO PRN ×2 (04:00→22:46)
[2016-09-04] MEDS: IBUPROFEN 400 MG TAB PO PRN ×2 (04:01→14:29)
[2016-09-04 07:18] VITALS: BP 138/74
[2016-09-04] MEDS: HYDROCORTISONE 1% OINTMENT 30GM TOP SCH (09:00)
[2016-09-04] MEDS: OLANZapine ORAL DISINTEGRATING TAB 5MG PO SCH ×2 (09:45→20:57)
[2016-09-04] MEDS: MULTIVITAMINS/MINERALS THERAP 1 TAB PO SCH (09:45)
[2016-09-04] MEDS: VALPROIC ACID 250 MG CAP PO SCH ×2 (09:45→20:58)
[2016-09-04] MEDS: NICOTINE 21MG/24HR 1 EA TRANSDERMAL TD SCH (09:46)
[2016-09-04] MEDS: LITHIUM CARBONATE 300MG/5ML(8MEQ/5ML)ORAL SOLUTION UDC PO SCH ×2 (09:46→20:58)
[2016-09-04] MEDS: ACETAMINOPHEN TAB 650MG DOSE (2X325MG) PO PRN ×2 (09:47→20:57)
[2016-09-04 16:35] VITALS: BP 138/74
[2016-09-04] MEDS: PROPRANOLOL 10 MG TAB PO PRN (16:35)
[2016-09-04 18:00] VITALS: BP 160/80
[2016-09-04] MEDS: ASENAPINE 5 MG SUBLINGUAL TAB (SAPHRIS) SL SCH (22:48)
[2016-09-05] MEDS: IBUPROFEN 400 MG TAB PO PRN ×2 (02:14→12:27)
[2016-09-05 06:52] VITALS: BP 128/81
[2016-09-05] MEDS: NICOTINE 21MG/24HR 1 EA TRANSDERMAL TD SCH (08:24)
[2016-09-05] MEDS: OLANZapine ORAL DISINTEGRATING TAB 5MG PO SCH (08:25)
[2016-09-05] MEDS: MULTIVITAMINS/MINERALS THERAP 1 TAB PO SCH (08:25)
[2016-09-05] MEDS: VALPROIC ACID 250 MG CAP PO SCH (08:26)
[2016-09-05] MEDS: LITHIUM CARBONATE 300MG/5ML(8MEQ/5ML)ORAL SOLUTION UDC PO SCH (08:26)
[2016-09-05] MEDS: ACETAMINOPHEN TAB 650MG DOSE (2X325MG) PO PRN (08:26)
[2016-09-05] MEDS: HYDROCORTISONE 1% OINTMENT 30GM TOP SCH (09:00)
[2016-09-05] MEDS: hydrOXYzine 50 MG TAB PO PRN (12:26)
== END 2016-09-05 12:45 | DRG 885 ==
LOC: M ED 16:36 → M ED INP 18:46 → M PSY 20:04
PROVIDERS: ADMIT Psychiatry & Neurology Psychiatry; ATTEND Psychiatry & Neurology Psychiatry
DX: F31.2 Bipolar disorder, current episode manic severe with psychotic features (principal); B37.0 Candidal stomatitis; F10.10 Alcohol abuse, uncomplicated; F13.10 Sedative, hypnotic or anxiolytic abuse, uncomplicated; F11.10 Opioid abuse, uncomplicated; F12.20 Cannabis dependence, uncomplicated; F41.0 Panic disorder [episodic paroxysmal anxiety]; F17.210 Nicotine dependence, cigarettes, uncomplicated; L40.9 Psoriasis, unspecified; K02.9 Dental caries, unspecified; K04.7 Periapical abscess without sinus; Z91.14 Patient's other noncompliance with medication regimen; Z79.899 Other long term (current) drug therapy